=== PATIENT | female | born 1965 | race Caucasian/White ===

== ENCOUNTER 2020-08-11 14:01 | Emergency (ER) | payer OTHER ==
[2020-08-11] MEDS ORDERED: KETOROLAC 60 MG/2 ML VIAL IM STA (14:45)
--- NOTE | 2020-08-11 14:53 | ED Physician Documentation ---
History of Present Illness - Stated complaint Stated Complaint: L SIDE PX - Chief complaint Chief Complaint: General - History obtained from History obtained from: Patient - History of Present Illness Timing: How many days ago (11) Pain level max: 8 Pain level now: 8 - Additonal information Additional information: Patient is a 55-year-old female who presents to the emergency department after falling 11 days ago off wooden steps onto a wooden floor. She complains of pain to the left ankle, left elbow and left shoulder. Worse with movement, better with rest. Taken Tylenol without relief. She is visiting from [place]. She states she has not been able to use the arm since the event. She has been walki ng on the ankle, but states that it does have increasing pain. No head injury. No loss of consciousness. No neck or back pain. No nausea or vomiting. Review of Systems Ten Systems: 10 systems reviewed and negative Constitutional: denies: Fever, Chills Ears: denies: Ear pain Nose: denies: Rhinorrhea / runny nose, Congestion GI: denies: Nausea, Vomiting, Diarrhea Skin: denies: Rash Musculoskeletal: denies: Neck pain, Back pain Neurologic: denies: Headache PD PAST MEDICAL HISTORY - Past Medical History Past Medical History: Yes - Present Medications Home Medications: Ambulatory Orders Medication Instructions Recorded Confirmed Acetaminophen [Tylenol] 650 mg PO Q6H PRN 08/11/20 08/11/20 Amlodipine Besylate [Norvasc] 2.5 mg PO DAILY 08/11/20 08/11/20 Azelastine HCl 1 spray IN BID 08/11/20 08/11/20 Calcium Carbonate/Vitamin D3 1 tab ORAL DAILY 08/11/20 08/11/20 [Caltrate 600 Plus D3 Tablet] Cholecalciferol (Vitamin D3) 2,000 units PO DAILY 08/11/20 08/11/20 [Vitamin D3] Clobetasol Propionate [Impoyz] 1 applic TP DAILY 08/11/20 08/11/20 Cyclobenzaprine [Flexeril] 5 - 10 mg ORAL BID PRN 08/11/20 08/11/20 Diclofenac Sodium [Voltaren 1 applic TP QID 08/11/20 08/11/20 Arthritis Pain] Dorzolamide HCl/Pf [Dorzolamide 2% 1 drops EACHEYE TID 08/11/20 08/11/20 Eye Drop] Ezetimibe [Zetia] 10 mg PO HS 08/11/20 08/11/20 Folic Acid 1 mg PO DAILY 08/11/20 08/11/20 Ibuprofen [Motrin] 600 mg PO Q6H PRN 08/11/20 08/11/20 Levothyroxine [Synthroid] 112 mcg PO QDAC 08/11/20 08/11/20 Methotrexate [Methotrexate Sodium] 4 tab PO ONCE 08/11/20 08/11/20 Metoprolol Succinate [Toprol Xl] 50 mg ORAL HS 08/11/20 08/11/20 Netarsudil Mesylat/Latanoprost 1 drops EACHEYE DAILY 08/11/20 08/11/20 [Rocklatan 0.02%-0.005% Eye Drp] Pantoprazole [Protonix] 40 mg PO DAILY 08/11/20 08/11/20 Tacrolimus/Hyaluronate/Niacin 1 applic TP BID 08/11/20 08/11/20 [Hyalur 1%-Niac4%-Tacrolim 0.1%] hydroCHLOROthiazide [Hydrodiuril] 12.5 mg PO DAILY 08/11/20 08/11/20 traZODone [Desyrel] 50 mg PO HS 08/11/20 08/11/20 - Allergies Allergies/Adverse Reactions: Allergies Allergy/AdvReac Type Severity Reaction Status Date / Time albuterol Allergy Respiratory Verified 08/11/20 14:17 [From Proventil HFA] atorvastatin Allergy Unknown Verified 08/11/20 15:18 azithromycin Allergy Unknown Verified 08/11/20 15:18 bacitracin Allergy Unknown Verified 08/11/20 15:18 [From Neosporin ([id number])] chlorpheniramine Allergy Unknown Verified 08/11/20 15:18 codeine Allergy Unknown Verified 08/11/20 15:18 doxycycline Allergy Unknown Verified 08/11/20 15:18 epinephrine Allergy Unknown Verified 08/11/20 15:18 levofloxacin Allergy Unknown Verified 08/11/20 15:18 lidocaine Allergy Unknown Verified 08/11/20 15:18 meperidine [From Demerol] Allergy Unknown Verified 08/11/20 14:17 neomycin Allergy Unknown Verified 08/11/20 15:18 [From Neosporin ([id number])] polymyxin B Allergy Unknown Verified 08/11/20 15:18 [From Neosporin ([id number])] prednisone Allergy Hives Verified 08/11/20 14:18 procaine Allergy Unknown Verified 08/11/20 15:18 propoxyphene Allergy Unknown Verified 08/11/20 15:18 PD ED PE NORMAL - Vitals Vital signs reviewed: Yes - General General: Alert and oriented X 3, No acute distress - HEENT HEENT: Moist mucous membranes - Neck Neck: Supple, no meningeal sign - Cardiac Cardiac: RRR - Respiratory Respiratory: No respiratory distress, Clear bilaterally - Back Back: No spinal TTP - Derm Derm: Warm and dry - Extremities Extremities: Other - Neuro Neuro: Alert and oriented X 3 - Psych Psych: Normal mood, Normal affect - Free text exam Free text exam: Patient has very limited range of motion of the left shoulder secondary to pain. No deformity. Neurovascular intact. She does have supination and pronation of the elbow as well as extension and flexion, but does have pain with this. This is the left elbow. She also has tenderness over the lateral malleolus of the left ankle. No swelling. No bruising. There is no bruising over the left shoulder or elbow as well. Neurovascularly intact. Results - Vitals Vitals: Vital Signs - 24 hr 08/11/20 08/11/20 14:11 16:07 Temperature 36.4 C L 37.3 C Heart Rate 66 66 Respiratory 16 18 Rate Blood Pressure 165/67 H 148/69 H O2 Saturation 99 97 Oxygen O2 Source Room air - Rads (name of study) L shoulder xray Radiology: Prelim report reviewed, EMP read contemporaneously, See rad report (No acute abnormality) L elbow xray Radiology: Prelim report reviewed, EMP read contemporaneously, See rad report (No acute abnormality) L ankle xray Radiology: Prelim report reviewed, EMP read contemporaneously, See rad report (No acute abnormality) PD MEDICAL DECISION MAKING - ED course Complexity details: reviewed results, re-evaluated patient, considered differential, d/w patient ED course: No acute findings on x-ray. Placed in a sling for comfort. Also given an ankle brace for comfort. Ambulating well. Declines pain medication for home. No other acute injuries. She will follow up with her doctor when she returns home to [place]. Patient counseled regarding signs and symptoms for which I believe and urgent re-evaluation would be necessary. Patient with good understanding of and agreement to plan and is comfortable going home at this time This document was made in part using voice recognition software. While efforts are made to proofread this document, sound alike and grammatical errors may occur. Departure - Departure Disposition: Home, Self Care Clinical Impression: Left shoulder strain Qualifiers: Encounter type: initial encounter Qualified Code(s): S46.912A - Strain of unspecified muscle, fascia and tendon at shoulder and upper arm level, left arm, initial encounter Sprain of elbow, left Qualifiers: Encounter type: initial encounter Qualified Code(s): S53.402A - Unspecified sprain of left elbow, initial encounter Left ankle sprain Qualifiers: Encounter type: initial encounter Involved ligament of ankle: unspecified ligament Qualified Code(s): S93.402A - Sprain of unspecified ligament of left ankle, initial encounter Condition: Good Instructions: ED Sprain Elbow, ED Sprain Shoulder, ED Sprain Ankle Follow-Up: Your,doctor in 1 week [Other] Comments: Follow-up with your doctor for further care. Return if you worsen. You can take your copy of your x-rays with you to your doctor appointment. There are no acute fractures on your x-rays. Discharge Date/Time: 08/11/20 16:52
[2020-08-11 16:08] VITALS: BP 148/69
--- NOTE | 2020-08-11 16:16 | XRAY Report ---
PROCEDURE: Ankle 3 View LT INDICATIONS: fall ankle pain, 11 days ago TECHNIQUE: 3 views of the ankle were acquired. COMPARISON: None FINDINGS: Bones: No fractures or dislocations. Ankle mortise is normally aligned. No suspicious bony lesions . Tiny ossifications inferior to the medial malleolus are consistent with remote trauma. Soft tissues: No tibiotalar joint effusion. Achilles tendon appears normal. IMPRESSION: No evidence acute bony abnormality of the left ankle. Reviewed by: Maynor Chavez MD on 08/11/2020 3:14 PM [facility] Approved by: Maynor Chavez MD on 08/11/2020 3:14 PM [facility] Station ID: [id number]
--- NOTE | 2020-08-11 16:23 | XRAY Report ---
PROCEDURE: Elbow 3 View LT INDICATIONS: fall elbow pain, 11 days ago TECHNIQUE: 3 views of the elbow were acquired. COMPARISON: None FINDINGS: Bones: No fractures or dislocations. No suspicious bony lesions. Soft tissues: No elbow joint effusion. No suspicious soft tissue calcifications. IMPRESSION: No evidence of acute bony abnormality of the left elbow. Reviewed by: Maynor Chavez MD on 08/11/2020 3:22 PM [facility] Approved by: Maynor Chavez MD on 08/11/2020 3:22 PM [facility] Station ID: [id number]
--- NOTE | 2020-08-11 16:24 | XRAY Report ---
PROCEDURE: Shoulder 3 View LT INDICATIONS: fall shoulder pain, 11 days ago TECHNIQUE: 3 views of the shoulder were acquired. COMPARISON: None. FINDINGS: Bones: No fractures or dislocations. No suspicious bony lesions. Visualized ribs appear intact. Soft tissues: No suspicious soft tissue calcifications. IMPRESSION: No evidence acute bony abnormality of the left shoulder. Reviewed by: Maynor Chavez MD on 08/11/2020 3:23 PM [facility] Approved by: Maynor Chavez MD on 08/11/2020 3:23 PM [facility] Station ID: [id number]
== END 2020-08-11 16:52 | disposition home or self-care (01) ==
LOC: ED 14:01
DX: S46.912A Strain of unspecified muscle, fascia and tendon at shoulder and upper arm level, left arm, initial encounter (principal); S53.402A Unspecified sprain of left elbow, initial encounter; S93.402A Sprain of unspecified ligament of left ankle, initial encounter; W10.9XXA Fall (on) (from) unspecified stairs and steps, initial encounter
CPT/HCPCS: 96372; 99282; 99283